=== PATIENT | female | born 1985 | race Caucasian/White ===

== ENCOUNTER 2021-09-03 12:08 | Outpatient (CLI) | payer BC ==
[~2021-09-03] VITALS: Wt 95.5 kg
[2021-09-03] VITALS (7 sets, daily range): BP systolic 149–169; BP diastolic 61–97; PULSE 65–77
[~2021-09-03 12:08] MED LIST: CALCIUM CARBON650 M2; IBU600 MG PO; PRENATAL MVI
[2021-09-03 13:06] LABS: BASO % 0.1 % (0.0-2.0); EOS # 0.1 K/mm3 (0.0-0.7); EOS % 0.8 % (0-4.0); GRAN # 5.9 K/mm3 (1.4-6.5); GRAN % 74.2 % (42.2-75.2); HEMATOCRIT 30.8 % (37.0-47.0); HEMOGLOBIN 10.1 g/dl (12.5-16.0); LYMPH # 1.2 K/mm3 (1.2-3.4); MEAN CELL VOLUME 88 fl (80.0-100.0); MEAN CORPUSCULAR HEMOGLOBIN 29 pg (27.0-31.0); MEAN CORPUSCULAR HGB CONC 33 g/dl (33.0-37.0); MEAN PLATELET VOLUME 13.5 fl (7.4-10.4); MONO # 0.8 K/mm3 (0.1-0.6); MONO % 9.5 % (1.7-9.3); PLATELET COUNT 182 K/mm3 (130-400)
[2021-09-03 13:08] LABS: MUCOUS Present (NOT PRESENT); PH 6 (5-8); URINE APPEARANCE Hazy (CLEAR/HAZY); URINE BACTERIA Rare (NONE SEEN); URINE BILIRUBIN Negative (NEGATIVE); URINE BLOOD Negative (NEGATIVE); URINE COLOR Yellow (YELLOW); URINE GLUCOSE Negative (NEGATIVE); URINE KETONE Negative (NEGATIVE); URINE LEUKOCYTE ESTERASE Negative (NEGATIVE); URINE NITRATE Negative (NEGATIVE); URINE PROTEIN(semi-quant) Negative (NEGATIVE); URINE RBC 0-2 /hpf (0-2); URINE UROBILINOGEN Negative (NEGATIVE); URINE WBC 0-2 /hpf (0-2)
[2021-09-03 13:24] LABS: COLLECTION METHOD CLEAN CATCH
[2021-09-03 13:25] LABS: ALBUMIN 2.3 gm/dL (3.5-5.0); BILIRUBIN,TOTAL 0.3 mg/dL (0.2-1.2); CALCIUM 8.6 mg/dL (8.4-10.2); CREATININE, serum 0.62 mg/dL (0.57-1.11); POTASSIUM 3.8 mmol/L (3.5-4.5); TOTAL PROTEIN 5.7 gm/dL (6.2-8.1)
== END 2021-09-03 15:35 ==
LOC: LDRO 12:08 → LDR 12:15 → LDRO 15:35
PROVIDERS: Obstetrics & Gynecology
DX: O13.3 Gestational [pregnancy-induced] hypertension without significant proteinuria, third trimester (principal); Z3A.36 36 weeks gestation of pregnancy
CPT/HCPCS: OP; J7120

== ENCOUNTER 2021-09-12 11:09 | Inpatient (IN) | payer BC ==
[~2021-09-12] VITALS: Ht 167.6 cm; Wt 92.7 kg
[2021-09-14] VITALS (27 sets, daily range): BP systolic 130–214; BP diastolic 67–111; PULSE 57–78; TEMP 97.7–98.2
--- NOTE | 2021-09-14 02:15 | NUR ---
0215 PT CALLED OUT FROM BATHROOM THAT SHE WAS BLEEDING. PT STANDING UP AND SEVERAL AREAS OF FREE FLOW BLOOD NOTED ON FLOOR WITH 6 CM CLOT NOTED ON PAD. UP IN SHOWER TO CLEAN UP AND RETURNED TO BED. FUNDAL MASSAGE WITH LARGE CLOT AND LARGE AMOUNT RUBRA PASSED. FUNDAS AT UMBLICUS AND ALWAYS FIRM. VAG CLOTS AND BLEEDING WEIGHT AT [address] PITTS NOTIFIED OF EARLIER BLEEDING AND NOW PERIPAD 3/4 SATURATED. NO CLOTS AT THIS TIME AND FUNDAS FIRM. ORDER RECEIVED AND HEMABATE 250MCG IM GIVEN. 0315 FUNDAS MASSAGE WITH LARGE 10CM CLOT PASSED AND PERIPAD SATURATED. WEIGHED [address] PITTS HERE AND NOTIFIED. IV STARTED IN LEFT HAND AND PITOCIN 30 UNITS IN 500 MG STARTED TO TITRATED BLEEDING. 0330 DR PITTS IN ROOM AND BLEEDING CHECKED. NO ACTIVE BLEEDING AT THIS TIME AND FF AT UMBILICUS. 0400 UP TO BR AND VOIDED. MODERATE BM. SM VAG BLEEDING NOTED. FF ON RETURN TO BED. IV INF AT 100CC/HR PER IV PUMP. LIGHTS OUT TO SLEEP
--- NOTE | 2021-09-14 06:25 | NUR ---
PT AMBULATORY TO FLOOR FOR SCHEDULED IOL. DENIES LEAKING OF FLUID, DENIES CONTRACTIONS, REPORTS POSITIVE MOVEMENT UPON ARRIVAL. PT PLACED ON EFM/TOCO, CATEGORY 1 STRIP NOTED. IRREGULAR CONTRACTIONS, PT DENIES BEING ABLE TO FEEL THEM. MILD UPON PALPATION. CONSENTS SIGNED. POC REVIEWED. PT DENIES FURTHER QUESTION OR CONCERN. INTO TO LEFT FA. PT HYPERTENSIVE, AWARE AND LABS OBTAINED. WILL CONTINUE WITH IOL POC PER ORDERS.
[2021-09-14 07:30] LABS: BASO % 0.1 % (0.0-2.0); EOS # 0.1 K/mm3 (0.0-0.7); EOS % 1.3 % (0.0-4.0); GRAN % 70.4 % (42.2-75.2); HEMOGLOBIN 10.2 g/dl (12.5-16.0); LYMPH # 1.2 K/mm3 (1.2-3.4); LYMPH % 17.3 % (20.0-51.0); MEAN CELL VOLUME 90 fl (80.0-100.0); MEAN CORPUSCULAR HEMOGLOBIN 29 pg (27-31); MEAN CORPUSCULAR HGB CONC 32 g/dl (33.0-37.0); MEAN PLATELET VOLUME 14.1 fl (7.4-10.4); MONO # 0.7 K/mm3 (0.1-0.6); MONO % 10.5 % (1.7-9.3); PLATELET COUNT 165 K/mm3 (130-400); RED BLOOD COUNT 3.53 M/mm3 (4.10-5.30); REDCELL DISTRIBUTION WIDTH-CV 13.8 % (11.5-14.5)
[2021-09-14 07:34] LABS: HEMATOCRIT 31.8 % (37.0-47.0)
[2021-09-14 07:46] LABS: ALBUMIN 2.3 gm/dL (3.5-5.0); BILIRUBIN,TOTAL 0.3 mg/dL (0.2-1.2); CALCIUM 8.2 mg/dL (8.4-10.2); CREATININE, serum 0.61 mg/dL (0.57-1.11); POTASSIUM 3.6 mmol/L (3.5-4.5); TOTAL PROTEIN 5.5 gm/dL (6.2-8.1)
[2021-09-14] MEDS ORDERED: TRANDATE 200MG200 MG PO (07:46)
[2021-09-14 08:46] LABS: COLLECTION METHOD CLEAN CATCH
[2021-09-14 08:52] LABS: PH 6 (5-8); SQUAMOUS EPITHELIAL 0-2 /hpf (0-10); URINE APPEARANCE Hazy (CLEAR/HAZY); URINE BACTERIA None Seen (NONE SEEN); URINE BILIRUBIN Negative (NEGATIVE); URINE BLOOD Negative (NEGATIVE); URINE COLOR Yellow (YELLOW); URINE GLUCOSE Negative (NEGATIVE); URINE KETONE Negative (NEGATIVE); URINE LEUKOCYTE ESTERASE Negative (NEGATIVE); URINE NITRATE Negative (NEGATIVE); URINE PROTEIN(semi-quant) Negative (NEGATIVE); URINE RBC None Seen /hpf (0-2); URINE UROBILINOGEN Negative (NEGATIVE); URINE WBC 0-2 /hpf (0-2)
--- NOTE | 2021-09-14 09:21 | NUR ---
0921: AT BEDSIDE. SVE /-2. AROM WITH LARGE AMOUNT OF CLEAR FLUID AT THIS TIME. PT TOLERATES PROCEDURE WELL.
--- NOTE | 2021-09-14 10:12 | NUR ---
PT ASSISTED TO SITTING ON EDGE OF BED FOR EPIDURAL PLACEMENT PER PT REQUEST. NIKOLAI AGUIAR FILAMENT COIL WINDER AND BEDSIDE EDUCATING ON PROCEDURE, CONSENTS SIGNED UPON ARRIVAL. PT DENIES FURTHER QUESTION OR CONCERN. LR BOLUS INFUSING PER PROTOCOL. DIFFICULTY TRACING EFM/TOCO DUE TO MATERNAL POSITIONING. 1015: TEST DOSE PER NIKOLAI AGUIAR CRNA. PT TOLERATED PROCEDURE WELL. VITAL SIGNS STABLE AT THIS TIME.
--- NOTE | 2021-09-14 11:50 | NUR ---
1133: SVE COMPLETE/+1. PT COACHED THROUGH A PRACTICE PUSH, MOVES BABY WELL. NOTIFIED TO ASSIST AT BEDSIDE. 1150: OF VIABLE MALE . NUCHAL X1. PLACED ON MATERNAL ABDOMEN, CARE ASSUMED BY EDITH PAYTON. CORD CLAMPED X2 AND CUT BY PER FOB REQUST. PERINEUM REMAINS INTACT. 1153: OF PLACENTA. PITOCIN BOLUS INFUSING PER PROTOCOL. FUNDUS FIRM AT UMBILICUS. LOCHIA SMALL WITH NO CLOTS. WILL CONTINUE WITH PP CARES PER PROTOCOL.
--- NOTE | 2021-09-14 15:19 | NUR ---
PT UP TO BR, AMBULATES WELL VOIDS 900MLS, TONYA CARE REVIEWED AND EPIDURAL REMOVED. PT AMBULATES TO RM 208 TOLORATES WELL.
[2021-09-15] VITALS (7 sets, daily range): BP systolic 126–140; BP diastolic 70–98; PULSE 63–85; TEMP 97.5–98.3
[2021-09-15 05:57] LABS: BASO % 0.2 % (0.0-2.0); EOS # 0.1 K/mm3 (0.0-0.7); EOS % 0.6 % (0.0-4.0); GRAN # 9.8 K/mm3 (1.4-6.5); GRAN % 81.7 % (42.2-75.2); LYMPH # 1.1 K/mm3 (1.2-3.4); LYMPH % 9.4 % (20.0-51.0); MEAN CELL VOLUME 89 fl (80.0-100.0); MEAN CORPUSCULAR HGB CONC 32 g/dl (33.0-37.0); MEAN PLATELET VOLUME 13.8 fl (7.4-10.4); MONO # 0.9 K/mm3 (0.1-0.6); MONO % 7.5 % (1.7-9.3); PLATELET COUNT 157 K/mm3 (130-400); RED BLOOD COUNT 3.14 M/mm3 (4.10-5.30); REDCELL DISTRIBUTION WIDTH-CV 14.2 % (11.5-14.5)
[2021-09-15 06:07] LABS: HEMATOCRIT 27.9 % (37.0-47.0); MEAN CORPUSCULAR HEMOGLOBIN 29 pg (27-31)
--- NOTE | 2021-09-15 06:30 | NUR ---
Rests in bed, alert. Ambulates to the bathroom. Small amount of red color drainage on the floor. Voids moderate amount of urine. Casi-care given. Back to bed. Fundus firm with minimal bleeding noted.
--- NOTE | 2021-09-15 09:18 | NUR ---
Initial visit; Patient thanked Internet Marketing Executive for offering congratulations and God's blessings for the of her son. Internet Marketing Executive thanked mom for choosing [facility].
--- NOTE | 2021-09-15 18:45 | NUR ---
Report recieved. Resting in chair while . POC reviewed and whiteboard updated.
--- NOTE | 2021-09-16 08:00 | NUR ---
Rests in bed, alert. Denies any needs at this time.
[2021-09-16] MEDS ORDERED: PROCARDIA XL 6060 MG PO (08:45)
[2021-09-16] MEDS ORDERED: IBU600 MG PO (08:45)
[2021-09-16 09:00] VITALS: BP 138/88; PULSE 75; TEMP 98.3
--- NOTE | 2021-09-16 09:00 | NUR ---
Rests in bed, alert. Procardia er 60 mg given as ordered. Denies any needs at this time.
--- NOTE | 2021-09-16 11:00 | NUR ---
Rests in bed, alert. Discharge instructions given. Verbalizes understanding.
== END 2021-09-16 11:00 | disposition home health service (06) | DRG 807 ==
LOC: LDR 09-14 06:20 → OB 09-14 06:20 → LDR 09-14 11:08 → OB 09-14 15:25
PROVIDERS: ADMIT Obstetrics & Gynecology
PROC: 10E0XZZ Delivery of Products of Conception, External Approach (ICD-10-PCS; principal; 2021-09-14)
DX: O14.14 Severe pre-eclampsia complicating childbirth (principal); Z37.0 Single live birth; O69.81X0 Labor and delivery complicated by cord around neck, without compression, not applicable or unspecified; O72.1 Other immediate postpartum hemorrhage; Z3A.38 38 weeks gestation of pregnancy
CPT/HCPCS: J0360; J2590; J2795; J7120

== ENCOUNTER → 2022-11-03 | Outpatient (CLI) | payer BC ==
[~2022-11-03] MED LIST changes: +PROCARDIA XL 6060 MG PO; +TRANDATE 200MG200 MG PO
== END ==
LOC: MC.RAD 13:59
DX: N63.22 Unspecified lump in the left breast, upper inner quadrant (principal)